=== PATIENT | female | born 1985 | race Caucasian/White ===

== ENCOUNTER → 2017-07-11 | Outpatient (CLI) | payer OTHER ==
[~2017-07-11] MED LIST: TERB250 PO
== END | disposition home or self-care (01) ==
LOC: LAB SHORT 16:29 → LAB 16:29
DX: Z34.00 Encounter for supervision of normal first pregnancy, unspecified trimester (principal)
CPT/HCPCS: 87081; 87653

== ENCOUNTER 2017-08-01 16:07 | Inpatient (IN) | payer OTHER ==
[~2017-08-01] VITALS: Ht 175.3 cm; Wt 99.5 kg
[2017-08-01] MEDS ORDERED: LABE200 PO (16:25)
[2017-08-01] MEDS ORDERED: Verotin-Gr Cap1 EACH PO (16:26)
[2017-08-01 17:36] LABS: BASOPHILS ABSOLUTE AUTO 0.04 K/mm3 (0.00-0.23); BASOPHILS PERCENT AUTO 0 % (0-2); EOSINOPHILS ABSOLUTE AUTO 0.28 K/mm3 (0.00-0.68); EOSINOPHILS PERCENT AUTO 3 % (0-6); Hematocrit 30.2 % (33.0-51.0); IMMATURE GRAN ABSOLUTE AUTO 0.03 K/mm3 (0.00-0.10); IMMATURE GRAN PERCENT AUTO 0 % (0-1); LYMPHOCYTES ABSOLUTE AUTO 1.35 K/mm3 (0.84-5.20); LYMPHOCYTES PERCENT AUTO 13 % (21-46); MONOCYTES ABSOLUTE AUTO 0.85 K/mm3 (0.16-1.47); MONOCYTES PERCENT AUTO 8 % (4-13); Mean Corpuscular HGB 26.6 pg (26.0-34.0); Mean Corpuscular HGB Conc 33.1 g/dL (31.5-36.5); Mean Corpuscular Volume 80 fL (80-100); Mean Platelet Volume 12.3 fL (9.1-12.4); NEUTROPHILS ABSOLUTE AUTO 7.56 K/mm3 (1.96-9.15); NEUTROPHILS PERCENT AUTO 75 % (41-73); Platelet Count 200 K/mm3 (150-400); RDW Coefficient Variation 13.4 % (11.7-14.2); RDW Standard Deviation 38.6 fL (35.1-46.3); Red Blood Cell Count 3.76 M/mm3 (3.80-5.20); White Blood Cell Count 10.11 K/mm3 (4.00-11.30)
[2017-08-03 05:18] LABS: Hematocrit 28.1 % (33.0-51.0); Hemoglobin 9.2 g/dL (11.5-16.0); Mean Corpuscular HGB 26.7 pg (26.0-34.0); Mean Corpuscular HGB Conc 32.7 g/dL (31.5-36.5); Mean Corpuscular Volume 81 fL (80-100); Platelet Count 163 K/mm3 (150-400); RDW Coefficient Variation 13.4 % (11.7-14.2); RDW Standard Deviation 39.4 fL (35.1-46.3); Red Blood Cell Count 3.45 M/mm3 (3.80-5.20); White Blood Cell Count 12.45 K/mm3 (4.00-11.30)
[2017-08-04] MEDS ORDERED: IBUP800 PO (12:25)
== END 2017-08-04 16:31 | disposition home or self-care (01) | DRG 767 ==
LOC: BC 16:07
PROVIDERS: Obstetrics & Gynecology
PROC: 10907ZC Drainage of Amniotic Fluid, Therapeutic from Products of Conception, Via Natural or Artificial Opening (ICD-10-PCS; 2017-08-01)
PROC: 3E033VJ Introduction of Other Hormone into Peripheral Vein, Percutaneous Approach (ICD-10-PCS; 2017-08-01)
PROC: 3E0P7VZ Introduction of Hormone into Female Reproductive, Via Natural or Artificial Opening (ICD-10-PCS; 2017-08-01)
PROC: 10D17Z9 Manual Extraction of Products of Conception, Retained, Via Natural or Artificial Opening (ICD-10-PCS; 2017-08-01)
PROC: 0KQM0ZZ Repair Perineum Muscle, Open Approach (ICD-10-PCS; 2017-08-01)
PROC: 10E0XZZ Delivery of Products of Conception, External Approach (ICD-10-PCS; principal; 2017-08-02)
DX: O10.02 Pre-existing essential hypertension complicating childbirth (principal); Z3A.39 39 weeks gestation of pregnancy; Z37.0 Single live birth; O70.1 Second degree perineal laceration during delivery; O43.893 Other placental disorders, third trimester
CPT/HCPCS: 36415; 51702; 81003; 85025; 85027; J0690; J1885; J2590; J3010; J7120

== ENCOUNTER → 2018-03-04 | Outpatient (CLI) | payer OTHER ==
[~2018-03-04] MED LIST changes: +BCP; +IBU800 MG PO; +IBUP800 PO; +LABE200 PO; +METO50ER PO; +RIFA550T2; +Verotin-Gr Cap1 EACH PO; +Vitamin D2000 UNIT PO
== END ==
LOC: LAB 19:09 → LAB SHORT 19:09
PROVIDERS: Nurse Practitioner Family
DX: Z01.419 Encounter for gynecological examination (general) (routine) without abnormal findings (principal)
CPT/HCPCS: G0145

== ENCOUNTER → 2018-12-29 | Outpatient (CLI) | payer OTHER | LOC: LAB 14:30 → LAB SHORT 14:30 | DX: Z34.93 Encounter for supervision of normal pregnancy, unspecified, third trimester (principal) | CPT/HCPCS: 87081; 87653 ==

== ENCOUNTER 2019-01-15 05:18 | Inpatient (IN) | payer OTHER ==
[~2019-01-15] VITALS: Ht 175.3 cm; Wt 105.4 kg
[2019-01-15] MEDS ORDERED: SERT25 (05:34)
[2019-01-15 05:44] LABS: BASOPHILS ABSOLUTE AUTO 0.04 K/mm3 (0.00-0.23); BASOPHILS PERCENT AUTO 0 % (0-2); EOSINOPHILS ABSOLUTE AUTO 0.28 K/mm3 (0.00-0.68); EOSINOPHILS PERCENT AUTO 3 % (0-6); Hematocrit 35.1 % (33.0-51.0); Hemoglobin 11.1 g/dL (11.5-16.0); IMMATURE GRAN ABSOLUTE AUTO 0.02 K/mm3 (0.00-0.10); IMMATURE GRAN PERCENT AUTO 0 % (0-1); LYMPHOCYTES ABSOLUTE AUTO 1.92 K/mm3 (0.84-5.20); LYMPHOCYTES PERCENT AUTO 21 % (21-46); MONOCYTES ABSOLUTE AUTO 0.78 K/mm3 (0.16-1.47); MONOCYTES PERCENT AUTO 9 % (4-13); Mean Corpuscular HGB 24.9 pg (26.0-34.0); Mean Corpuscular HGB Conc 31.6 g/dL (31.5-36.5); Mean Corpuscular Volume 79 fL (80-100); Mean Platelet Volume 11.8 fL (9.1-12.4); NEUTROPHILS ABSOLUTE AUTO 6.04 K/mm3 (1.96-9.15); NEUTROPHILS PERCENT AUTO 67 % (41-73); Platelet Count 248 K/mm3 (150-400); RDW Coefficient Variation 14.3 % (11.7-14.2); RDW Standard Deviation 40.5 fL (35.1-46.3); Red Blood Cell Count 4.45 M/mm3 (3.80-5.20); White Blood Cell Count 9.08 K/mm3 (4.00-11.30)
[2019-01-16 05:31] LABS: Hematocrit 31.5 % (33.0-51.0); Mean Corpuscular HGB 25.2 pg (26.0-34.0); Mean Corpuscular HGB Conc 31.7 g/dL (31.5-36.5); Mean Corpuscular Volume 79 fL (80-100); Mean Platelet Volume 11.7 fL (9.1-12.4); Platelet Count 193 K/mm3 (150-400); RDW Coefficient Variation 14.4 % (11.7-14.2); RDW Standard Deviation 41.6 fL (35.1-46.3); Red Blood Cell Count 3.97 M/mm3 (3.80-5.20); White Blood Cell Count 11.99 K/mm3 (4.00-11.30)
== END 2019-01-16 18:16 | disposition home or self-care (01) | DRG 806 ==
LOC: OBS 05:18 → BC 05:19 → OBS 05:28 → BC 01-16 18:16
PROVIDERS: Advanced Practice Midwife; ADMIT Obstetrics & Gynecology
PROC: 10E0XZZ Delivery of Products of Conception, External Approach (ICD-10-PCS; principal; 2019-01-15)
PROC: 0KQM0ZZ Repair Perineum Muscle, Open Approach (ICD-10-PCS; 2019-01-15)
PROC: 10D17Z9 Manual Extraction of Products of Conception, Retained, Via Natural or Artificial Opening (ICD-10-PCS; 2019-01-15)
PROC: 3E033VJ Introduction of Other Hormone into Peripheral Vein, Percutaneous Approach (ICD-10-PCS; 2019-01-15)
PROC: 10907ZC Drainage of Amniotic Fluid, Therapeutic from Products of Conception, Via Natural or Artificial Opening (ICD-10-PCS; 2019-01-15)
PROC: 3E0R3BZ Introduction of Anesthetic Agent into Spinal Canal, Percutaneous Approach (ICD-10-PCS; 2019-01-15)
DX: O10.92 Unspecified pre-existing hypertension complicating childbirth (principal); K50.90 Crohn's disease, unspecified, without complications; Z37.0 Single live birth; O72.0 Third-stage hemorrhage; O99.62 Diseases of the digestive system complicating childbirth; Z3A.39 39 weeks gestation of pregnancy; O70.1 Second degree perineal laceration during delivery
CPT/HCPCS: 36415; 51702; 85025; 85027; 88307; A9270; J0690; J1885; J2001; J3010; J7120

== ENCOUNTER 2019-03-19 12:49 | Day surgery (SDC) | payer OTHER ==
[~2019-03-19] VITALS: Ht 177.8 cm; Wt 96.7 kg
[~2019-03-19 12:49] MED LIST changes: +SERT25
--- NOTE | 2019-03-19 15:21 | NUR ---
03/19/19 1521 Rochelle Hernandez PT INTO RECLINER WITHOUT DIFFICULTY. PT DENIES PAIN AND NAUSEA AT THIS TIME. PT TOLERATING PO INTAKE WELL. CLEAN PAD AND MADONNA PANTIES PROVIDED. SANDOVAL AT CHAIRSIDE IN SDU. ABD DRESSINGS CDI. CALL LIGHT WITHIN REACH.
== END 2019-03-19 16:09 | disposition home or self-care (01) ==
LOC: ORSCSDS 12:49
PROVIDERS: Obstetrics & Gynecology
PROC: 0UT74ZZ Resection of Bilateral Fallopian Tubes, Percutaneous Endoscopic Approach (ICD-10-PCS; principal; 2019-03-19 14:00)
DX: Z30.2 Encounter for sterilization (principal); K66.0 Peritoneal adhesions (postprocedural) (postinfection); I10 Essential (primary) hypertension; Z79.899 Other long term (current) drug therapy
CPT/HCPCS: 88302; A9270-GY; J0171; J0330; J1100; J1885; J2250; J2405; J2704; J3010; J7120

== ENCOUNTER → 2019-07-06 | Outpatient (CLI) | payer OTHER | END | disposition home or self-care (01) | LOC: PLD 13:40 → LAB SHORT 13:40 | DX: M84.375A Stress fracture, left foot, initial encounter for fracture (principal); M79.675 Pain in left toe(s); G57.62 Lesion of plantar nerve, left lower limb; M92.72 Juvenile osteochondrosis of metatarsus, left foot; M79.672 Pain in left foot; R26.2 Difficulty in walking, not elsewhere classified | CPT/HCPCS: 88305; 88311 ==

== ENCOUNTER 2023-01-23 15:59 | Emergency (ER) | payer OTHER ==
[~2023-01-23] VITALS: Ht 167.6 cm; Wt 83.9 kg
[2023-01-23] MEDS ORDERED: Vyvanse60 MG PO (16:17)
[2023-01-23 16:36] LABS: BASOPHILS ABSOLUTE AUTO 0.07 K/mm3 (0.00-0.23); BASOPHILS PERCENT AUTO 1 % (0-2); EOSINOPHILS ABSOLUTE AUTO 0.14 K/mm3 (0.00-0.68); EOSINOPHILS PERCENT AUTO 2 % (0-6); Hematocrit 39.9 % (33.0-51.0); IMMATURE GRAN ABSOLUTE AUTO 0.02 K/mm3 (0.00-0.10); IMMATURE GRAN PERCENT AUTO 0 % (0-1); LYMPHOCYTES ABSOLUTE AUTO 1.83 K/mm3 (0.84-5.20); LYMPHOCYTES PERCENT AUTO 23 % (21-46); MONOCYTES ABSOLUTE AUTO 0.56 K/mm3 (0.16-1.47); MONOCYTES PERCENT AUTO 7 % (4-13); Mean Corpuscular HGB 30.3 pg (26.0-34.0); Mean Corpuscular HGB Conc 35.1 g/dL (31.5-36.5); Mean Corpuscular Volume 86 fL (80-100); Mean Platelet Volume 10.9 fL (9.1-12.4); NEUTROPHILS ABSOLUTE AUTO 5.31 K/mm3 (1.96-9.15); NEUTROPHILS PERCENT AUTO 67 % (41-73); Platelet Count 235 K/mm3 (150-400); RDW Coefficient Variation 12.7 % (11.7-14.2); RDW Standard Deviation 39.8 fL (35.1-46.3); Red Blood Cell Count 4.62 M/mm3 (3.80-5.20); White Blood Cell Count 7.93 K/mm3 (4.00-11.30)
[2023-01-23 17:24] LABS: Albumin, Blood 3.8 g/dL (3.4-5.0); Albumin/Globulin Ratio 1.1 (0.8-1.8); Bilirubin, Total 1.1 mg/dL (0.1-1.0); Bun/Creatinine Ratio 11.1 (12.0-20.0); Calcium, Blood 8.3 mg/dL (8.5-10.1); Creatinine, Blood 0.81 mg/dL (0.40-1.00); Globulin, Blood 3.6 g/dL (2.2-4.0); Potassium, Blood 3.3 mmol/L (3.5-5.5); Total Protein, Blood 7.4 g/dL (6.4-8.2)
[2023-01-23 17:45] VITALS: BP 169/94
== END 2023-01-23 17:59 | disposition home or self-care (01) ==
LOC: ER 15:59
PROVIDERS: Emergency Medicine
DX: I10 Essential (primary) hypertension (principal); F43.0 Acute stress reaction; F32.A Depression, unspecified; F90.9 Attention-deficit hyperactivity disorder, unspecified type; Z79.899 Other long term (current) drug therapy
CPT/HCPCS: 80053; 85025; 93005; 93010; 99284-25; A9270